=== PATIENT | male | born 1960 | race Caucasian/White ===

== ENCOUNTER → 2017-02-24 | Outpatient (CLI) | payer MEDICARE | END | disposition home or self-care (01) | LOC: RAD 07:19 | PROVIDERS: ATTEND Pain Medicine Interventional Pain Medicine | DX: M50.33 Other cervical disc degeneration, cervicothoracic region (principal); M51.24 Other intervertebral disc displacement, thoracic region; M50.221 Other cervical disc displacement at C4-C5 level; M50.222 Other cervical disc displacement at C5-C6 level; M50.223 Other cervical disc displacement at C6-C7 level; M50.21 Other cervical disc displacement, high cervical region; M48.02 Spinal stenosis, cervical region | CPT/HCPCS: 72052; 72141; 72146 ==

== ENCOUNTER 2019-07-10 05:17 | Emergency (ER) | payer MEDICARE ==
[~2019-07-10] VITALS: Ht 172.7 cm; Wt 68.0 kg
[2019-07-10 06:42] VITALS: BP 125/73
== END 2019-07-10 07:01 | disposition home or self-care (01) ==
LOC: ED 06:13
DX: J00 Acute nasopharyngitis [common cold] (principal); R05 Cough; R09.81 Nasal congestion; R06.00 Dyspnea, unspecified; R07.89 Other chest pain; I10 Essential (primary) hypertension
CPT/HCPCS: 71046; 93005; 99283